=== PATIENT | male | born 1945 | race Caucasian/White ===

== ENCOUNTER 2019-03-15 11:27 | Emergency (ER) | payer MEDICARE, MEDICAID ==
[~2019-03-15] VITALS: Ht 162.6 cm; Wt 55.0 kg
[2019-03-15 11:29] VITALS: BP 128/84
== END 2019-03-15 16:51 | disposition left against medical advice (07) ==
LOC: ER 11:41
DX: F10.120 Alcohol abuse with intoxication, uncomplicated (principal); Z53.21 Procedure and treatment not carried out due to patient leaving prior to being seen by health care provider; Y90.9 Presence of alcohol in blood, level not specified